=== PATIENT | female | born 1935 | race Asian ===

== ENCOUNTER 2018-01-01 07:26 | Inpatient (IN) | payer OTHER ==
[~2018-01-01] VITALS: Ht 157.5 cm; Wt 58.0 kg
[~2018-01-01 07:26] MED LIST: AMLO2.5T29 PO; METF500T4 PO; OLME5TAB6 PO; SIMV20TA6 PO
[2018-01-01 07:43] LABS: GLUCOSE,POINT OF CARE 128 MG/DL (70-110)
[2018-01-01] MEDS ORDERED: MULT-1259 PO (07:59)
[2018-01-01] MEDS ORDERED: DONE5TAB5 PO (07:59)
[2018-01-01 08:09] LABS: GLUCOSE,POINT OF CARE 130 MG/DL (70-110)
[2018-01-01] MEDS ORDERED: MECLIZINE HCL 25 MG TABLET PO ONE (08:15)
[2018-01-01] MEDS ORDERED: SODIUM CHLORIDE 0.9% 1,000 ML IV ONE (08:15)
[2018-01-01] MEDS ORDERED: ONDANSETRON HCL 4 MG/2 ML VIAL IVP ONE (08:15)
[2018-01-01 08:23] LABS: BASOPHILS % (AUTO) 0.5 % (0.0-2.0); EOSINOPHILS % (AUTO) 0.4 % (1.0-6.0); HEMATOCRIT 36.4 % (36-46); HEMOGLOBIN 12.2 g/dL (12.0-16.0); LYMPHOCYTES # (AUTO) 1.3 K/uL (1.0-4.8); LYMPHOCYTES % (AUTO) 19.3 % (22.0-44.0); MEAN CORPUSCULAR HEMOGLOBIN 31.5 pg (26.0-34.0); MEAN CORPUSCULAR HGB CONC 33.5 G/dL (31.0-37.0); MEAN CORPUSCULAR VOLUME 94 fL (80-100); MONOCYTES # (AUTO) 0.4 K/uL (0.1-1.0); MONOCYTES % (AUTO) 6.7 % (2.0-9.0); NEUTROPHILS # (AUTO) 4.8 K/uL (1.8-7.7); NEUTROPHILS % (AUTO) 73.1 % (40.0-70.0); PLATELET COUNT (AUTO) 208 K/uL (150-450); RED BLOOD CELL COUNT(AUTO) 3.88 MIL/uL (4.00-5.20); RED CELL DISTRIBUTION WIDTH 12.9 % (11.5-14.5)
[2018-01-01 08:37] LABS: ANION GAP 11 mmol/L (8-16); CALCIUM, TOTAL 8.8 mg/dL (8.8-10.5); CARBON DIOXIDE 28 mmol/L (22-29); CHLORIDE 103 mmol/L (98-107); CREATININE 0.64 mg/dL (0.60-1.30); GLOMERULAR FILTR. RATE CALC > 60 mL/min (>60); GLUCOSE,RANDOM 142 mg/dL (70-110); POTASSIUM 3.9 mmol/L (3.5-5.1); SODIUM SERUM 142 mmol/L (136-145); UREA NITROGEN, BLOOD 15 mg/dL (7-18)
[2018-01-01 08:42] LABS: ALANINE AMINOTRANSFERASE 24 U/L (12-78); ALBUMIN 3.8 g/dL (3.4-5.0); ALKALINE PHOSPHATASE 64 U/L (46-116); ASPARTATE AMINOTRANSFERASE 20 U/L (15-37); BILIRUBIN,TOTAL 0.5 mg/dL (0.1-1.0); TOTAL PROTEIN, SERUM 7.6 g/dL (6.4-8.2)
[2018-01-01] MEDS ORDERED: ONDANSETRON HCL 4 MG/2 ML VIAL IVP PRN ×2 (09:30→16:15)
[2018-01-01] MEDS ORDERED: ACETAMINOPHEN 325 MG TABLET PO PRN ×2 (09:30→16:15)
[2018-01-01 13:18] VITALS: BP 134/61
[2018-01-01 15:33] VITALS: BP 120/65
[2018-01-01] MEDS ORDERED: ZOLPIDEM TARTRATE 5 MG TABLET PO PRN (16:15)
[2018-01-01] MEDS ORDERED: IPRATROPIUM BROMIDE 0.5 MG/2.5 ML NEB SOLUTION NEB PRN (16:15)
[2018-01-01] MEDS ORDERED: MAGNESIUM HYDROXIDE SUSPENSION 30 ML UDCUP PO PRN (16:15)
[2018-01-01] MEDS ORDERED: MORPHINE SULFATE 2 MG/ML SYRINGE IVP PRN (16:15)
[2018-01-01] MEDS ORDERED: HYDROCODONE/ACETAMINOPHEN 5-325 MG TABLET PO PRN (16:15)
[2018-01-01] MEDS ORDERED: ALBUTEROL SULFATE 2.5 MG/0.5 ML NEB SOLUTION NEB PRN (16:15)
[2018-01-01] MEDS ORDERED: BISACODYL 10 MG RECTAL RECTAL SUPPOSITORY PR PRN (16:15)
[2018-01-01 17:11] LABS: CREATINE KINASE, TOTAL 102 U/L (26-192)
[2018-01-01 19:27] VITALS: BP 115/63
[2018-01-01] MEDS: SIMVASTATIN 20 MG TABLET PO SCH (20:25)
[2018-01-01] MEDS: MetFORMIN HCL 500 MG TABLET PO SCH (20:25)
[2018-01-01] MEDS: AmLODIPine BESYLATE 5 MG TABLET PO SCH (20:25)
[2018-01-01] MEDS: DOCUSATE SODIUM 100 MG CAPSULE PO SCH (20:28)
[2018-01-01 23:22] VITALS: BP 108/61
[2018-01-02] MEDS: HEPARIN SODIUM,PORCINE 5,000 UNITS/ML VIAL SQ SCH ×3 (00:17→16:13)
[2018-01-02 04:39] VITALS: BP 106/57
[2018-01-02 06:28] LABS: FREE T4 (FREE THYROXINE) 0.93 ng/dL (0.76-1.46); THYROID STIMULATING HORMONE 1.13 uIU/mL (0.36-3.74)
[2018-01-02 07:23] VITALS: BP 123/63
[2018-01-02] MEDS: AmLODIPine BESYLATE 5 MG TABLET PO SCH ×2 (08:32→20:24)
[2018-01-02] MEDS: DONEPEZIL HCL 5 MG TABLET PO SCH (08:32)
[2018-01-02] MEDS: MetFORMIN HCL 500 MG TABLET PO SCH ×2 (08:32→18:01)
[2018-01-02] MEDS: PANTOPRAZOLE SODIUM 40 MG/VIAL IVP SCH (08:32)
[2018-01-02] MEDS: DOCUSATE SODIUM 100 MG CAPSULE PO SCH ×2 (08:33→20:24)
[2018-01-02 11:52] VITALS: BP 114/64
[2018-01-02 15:21] VITALS: BP 128/66
[2018-01-02 19:41] VITALS: BP 129/69
[2018-01-02] MEDS: SIMVASTATIN 20 MG TABLET PO SCH (20:24)
[2018-01-02 23:35] VITALS: BP 114/64
[2018-01-03] VITALS (7 sets, daily range): BP systolic 90–135; BP diastolic 53–66
[2018-01-03] MEDS: HEPARIN SODIUM,PORCINE 5,000 UNITS/ML VIAL SQ SCH ×4 (01:28→23:53)
[2018-01-03 06:45] LABS: BASOPHILS % (AUTO) 0.9 % (0.0-2.0); EOSINOPHILS % (AUTO) 5.5 % (1.0-6.0); HEMATOCRIT 35.2 % (36-46); HEMOGLOBIN 11.8 g/dL (12.0-16.0); LYMPHOCYTES # (AUTO) 1.9 K/uL (1.0-4.8); LYMPHOCYTES % (AUTO) 41.9 % (22.0-44.0); MEAN CORPUSCULAR HEMOGLOBIN 31.4 pg (26.0-34.0); MEAN CORPUSCULAR HGB CONC 33.6 G/dL (31.0-37.0); MEAN CORPUSCULAR VOLUME 93 fL (80-100); MONOCYTES # (AUTO) 0.5 K/uL (0.1-1.0); MONOCYTES % (AUTO) 11.3 % (2.0-9.0); NEUTROPHILS # (AUTO) 1.8 K/uL (1.8-7.7); NEUTROPHILS % (AUTO) 40.4 % (40.0-70.0); PLATELET COUNT (AUTO) 203 K/uL (150-450); RED BLOOD CELL COUNT(AUTO) 3.77 MIL/uL (4.00-5.20); RED CELL DISTRIBUTION WIDTH 12.9 % (11.5-14.5)
[2018-01-03 07:13] LABS: ANION GAP 5 mmol/L (8-16); CALCIUM, TOTAL 8.5 mg/dL (8.8-10.5); CARBON DIOXIDE 33 mmol/L (22-29); CHLORIDE 104 mmol/L (98-107); CREATININE 0.68 mg/dL (0.60-1.30); GLOMERULAR FILTR. RATE CALC > 60 mL/min (>60); GLUCOSE,RANDOM 98 mg/dL (70-110); POTASSIUM 3.8 mmol/L (3.5-5.1); SODIUM SERUM 142 mmol/L (136-145); UREA NITROGEN, BLOOD 10 mg/dL (7-18)
[2018-01-03] MEDS: DOCUSATE SODIUM 100 MG CAPSULE PO SCH ×2 (08:29→20:40)
[2018-01-03] MEDS: DONEPEZIL HCL 5 MG TABLET PO SCH (08:29)
[2018-01-03] MEDS: AmLODIPine BESYLATE 5 MG TABLET PO SCH ×2 (08:29→21:00)
[2018-01-03] MEDS: MetFORMIN HCL 500 MG TABLET PO SCH ×2 (08:30→18:15)
[2018-01-03] MEDS: PANTOPRAZOLE SODIUM 40 MG/VIAL IVP SCH (08:30)
[2018-01-03] MEDS ORDERED: AMLO-511 PO (12:12)
[2018-01-03] MEDS ORDERED: OLME40 PO (12:12)
[2018-01-03] MEDS: MECLIZINE HCL 25 MG TABLET PO SCH ×2 (13:11→20:40)
[2018-01-03] MEDS: SIMVASTATIN 20 MG TABLET PO SCH (20:40)
[2018-01-04 04:45] VITALS: BP 122/64
[2018-01-04 06:10] LABS: BASOPHILS % (AUTO) 0.9 % (0.0-2.0); EOSINOPHILS % (AUTO) 5.5 % (1.0-6.0); HEMATOCRIT 35.3 % (36-46); HEMOGLOBIN 12.3 g/dL (12.0-16.0); LYMPHOCYTES # (AUTO) 2.1 K/uL (1.0-4.8); MEAN CORPUSCULAR HEMOGLOBIN 32.4 pg (26.0-34.0); MEAN CORPUSCULAR HGB CONC 34.8 G/dL (31.0-37.0); MEAN CORPUSCULAR VOLUME 93 fL (80-100); MONOCYTES # (AUTO) 0.5 K/uL (0.1-1.0); MONOCYTES % (AUTO) 10.2 % (2.0-9.0); NEUTROPHILS # (AUTO) 2.1 K/uL (1.8-7.7); NEUTROPHILS % (AUTO) 41.4 % (40.0-70.0); PLATELET COUNT (AUTO) 202 K/uL (150-450)
[2018-01-04 06:27] LABS: ANION GAP 6 mmol/L (8-16); CALCIUM, TOTAL 8.6 mg/dL (8.8-10.5); CARBON DIOXIDE 31 mmol/L (22-29); CHLORIDE 104 mmol/L (98-107); CREATININE 0.66 mg/dL (0.60-1.30); GLOMERULAR FILTR. RATE CALC > 60 mL/min (>60); GLUCOSE,RANDOM 97 mg/dL (70-110); POTASSIUM 3.7 mmol/L (3.5-5.1); SODIUM SERUM 141 mmol/L (136-145); THYROID STIMULATING HORMONE 1.28 uIU/mL (0.36-3.74); UREA NITROGEN, BLOOD 17 mg/dL (7-18)
[2018-01-04] MEDS: AmLODIPine BESYLATE 5 MG TABLET PO SCH (07:42)
[2018-01-04] MEDS: MECLIZINE HCL 25 MG TABLET PO SCH ×2 (07:42→21:25)
[2018-01-04] MEDS: MetFORMIN HCL 500 MG TABLET PO SCH ×2 (07:42→17:28)
[2018-01-04] MEDS: PANTOPRAZOLE SODIUM 40 MG/VIAL IVP SCH (07:44)
[2018-01-04] MEDS: DOCUSATE SODIUM 100 MG CAPSULE PO SCH ×2 (07:44→21:25)
[2018-01-04] MEDS: HEPARIN SODIUM,PORCINE 5,000 UNITS/ML VIAL SQ SCH ×2 (07:44→17:28)
[2018-01-04] MEDS: DONEPEZIL HCL 5 MG TABLET PO SCH (07:44)
[2018-01-04 07:45] VITALS: BP 115/59
[2018-01-04 11:10] VITALS: BP 116/71
[2018-01-04 15:34] VITALS: BP 115/60
[2018-01-04 19:56] VITALS: BP 106/65
[2018-01-04] MEDS: SIMVASTATIN 20 MG TABLET PO SCH (21:25)
[2018-01-05] MEDS: HEPARIN SODIUM,PORCINE 5,000 UNITS/ML VIAL SQ SCH ×3 (00:13→16:45)
[2018-01-05] MEDS: AmLODIPine BESYLATE 5 MG TABLET PO SCH ×2 (00:13→08:12)
[2018-01-05 00:16] VITALS: BP 114/66
[2018-01-05 05:47] VITALS: BP 115/70
[2018-01-05 07:43] VITALS: BP 114/61
[2018-01-05] MEDS: MetFORMIN HCL 500 MG TABLET PO SCH ×2 (08:11→18:09)
[2018-01-05] MEDS: PANTOPRAZOLE SODIUM 40 MG/VIAL IVP SCH (08:11)
[2018-01-05] MEDS: DONEPEZIL HCL 5 MG TABLET PO SCH (08:12)
[2018-01-05] MEDS: DOCUSATE SODIUM 100 MG CAPSULE PO SCH (08:12)
[2018-01-05] MEDS: MECLIZINE HCL 25 MG TABLET PO SCH (08:12)
[2018-01-05] MEDS ORDERED: GADOBUTROL 1 MMOL/ML 10 ML VIAL IVP ONE (08:17)
[2018-01-05 09:03] LABS: GLUCOMETER DEV NAME(LOC) PVLAB129; GLUCOSE,POINT OF CARE 140 MG/DL (70-110)
[2018-01-05 11:13] VITALS: BP 117/61
[2018-01-05 15:39] VITALS: BP 116/68
[2018-01-05] MEDS ORDERED: MECLIZINE HCL 25 MG TABLET PO SCH (18:00)
[2018-01-05] MEDS ORDERED: HEPA500018 SQ (20:05)
[2018-01-05] MEDS ORDERED: PANT40TA25 PO (20:06)
[2018-01-05] MEDS ORDERED: SIMV-260 PO (20:06)
[2018-01-05] MEDS ORDERED: MECL-111 PO (20:06)
[2018-01-05] MEDS ORDERED: AUD NEB (20:07)
[2018-01-05] MEDS ORDERED: ACET-2902 PO (20:07)
[2018-01-05] MEDS ORDERED: BISA10S PR (20:08)
[2018-01-05] MEDS ORDERED: HYDR-309 PO (20:09)
[2018-01-05] MEDS ORDERED: IPRNEB NEB (20:09)
[2018-01-05] MEDS ORDERED: MOM30 PO (20:10)
[2018-01-05] MEDS ORDERED: ZOLP5 PO (20:11)
[2018-01-06 05:43] LABS: GLUCOMETER DEV NAME(LOC) 5N 2R; GLUCOSE,POINT OF CARE 155 MG/DL (70-110)
== END 2018-01-05 18:26 | disposition home or self-care (01) | DRG 149 ==
LOC: EMS 07:27 → 5N 11:18
PROVIDERS: ADMIT Hospitalist; ATTEND Hospitalist
DX: R42 Dizziness and giddiness (principal); E11.9 Type 2 diabetes mellitus without complications; F03.90 Unspecified dementia, unspecified severity, without behavioral disturbance, psychotic disturbance, mood disturbance, and anxiety; E78.00 Pure hypercholesterolemia, unspecified; R26.9 Unspecified abnormalities of gait and mobility; E78.5 Hyperlipidemia, unspecified; I10 Essential (primary) hypertension; M81.0 Age-related osteoporosis without current pathological fracture; Z79.899 Other long term (current) drug therapy; Z79.84 Long term (current) use of oral hypoglycemic drugs
CPT/HCPCS: 70450; 70553; 82962; 83735; 84439; 84443; 93005; 93306; 93880; 96361; 96374; 97116; 97161; 97530; 99285; A9585; C9113; J1644; J2405; J7030

== ENCOUNTER 2018-11-28 15:28 | Emergency (ER) | payer OTHER ==
[~2018-11-28] VITALS: Ht 162.6 cm; Wt 63.6 kg
[~2018-11-28 15:28] MED LIST changes: +ACET-2902 PO; +AMLO-511 PO; -AMLO2.5T29 PO; +AUD NEB; +BISA10S PR; +DONE5TAB5 PO; +HEPA500018 SQ; +HYDR-309 PO; +IPRNEB NEB; +MECL-111 PO; +METF-444 PO; -METF500T4 PO; +MOM30 PO; +MULT-1259 PO; +OLME40TA8 PO; -OLME5TAB6 PO; +PANT40TA25 PO; +ZOLP5 PO
[2018-11-28 16:26] LABS: BASOPHILS % (AUTO) 0.7 % (0.0-2.0); EOSINOPHILS % (AUTO) 1.9 % (1.0-6.0); HEMATOCRIT 38.5 % (36-46); HEMOGLOBIN 13.1 g/dL (12.0-16.0); LYMPHOCYTES % (AUTO) 37.1 % (22.0-44.0); MEAN CORPUSCULAR HEMOGLOBIN 32.3 pg (26.0-34.0); MEAN CORPUSCULAR HGB CONC 34.1 G/dL (31.0-37.0); MEAN CORPUSCULAR VOLUME 95 fL (80-100); MONOCYTES # (AUTO) 0.4 K/uL (0.1-1.0); NEUTROPHILS # (AUTO) 2.8 K/uL (1.8-7.7); NEUTROPHILS % (AUTO) 52.3 % (40.0-70.0); PLATELET COUNT (AUTO) 218 K/uL (150-450); RED BLOOD CELL COUNT(AUTO) 4.07 MIL/uL (4.00-5.20); RED CELL DISTRIBUTION WIDTH 12.7 % (11.5-14.5)
[2018-11-28 16:35] LABS: ANION GAP 8 mmol/L (8-16); CALCIUM, TOTAL 9.1 mg/dL (8.8-10.5); CARBON DIOXIDE 30 mmol/L (22-29); CHLORIDE 101 mmol/L (98-107); CREATININE 0.97 mg/dL (0.60-1.30); GLOMERULAR FILTR. RATE CALC 55 mL/min (>60); GLUCOSE,RANDOM 148 mg/dL (70-110); POTASSIUM 4.1 mmol/L (3.5-5.1); SODIUM SERUM 139 mmol/L (136-145); UREA NITROGEN, BLOOD 14 mg/dL (7-18)
[2018-11-28 16:41] LABS: ALANINE AMINOTRANSFERASE 23 U/L (12-78); ALBUMIN 4.1 g/dL (3.4-5.0); ALKALINE PHOSPHATASE 69 U/L (46-116); ASPARTATE AMINOTRANSFERASE 22 U/L (15-37); BILIRUBIN,TOTAL 0.4 mg/dL (0.1-1.0); LIPASE 199 U/L (73-393); TOTAL PROTEIN, SERUM 7.7 g/dL (6.4-8.2)
[2018-11-28 18:21] LABS: APPEARANCE,URINE CLEAR (CLEAR); BILIRUBIN,URINE NEGATIVE (NEGATIVE); GLUCOSE, URINE (UA) NEGATIVE (NEGATIVE); KETONES,URINE NEGATIVE (NEGATIVE); LEUKOCYTE ESTERASE ,URINE TRACE (NEGATIVE); NITRATE,URINE POSITIVE (NEGATIVE); OCCULT BLOOD,URINE NEGATIVE (NEGATIVE); PROTEIN,URINE NEGATIVE (NEGATIVE); UROBILINOGEN,URINE 0.2 mg/dL (<=1.0)
[2018-11-28 18:23] LABS: AMPHET/METH SCREEN,URINE NEGATIVE (NEGATIVE); BARBITURATE SCREEN, URINE NEGATIVE (NEGATIVE); BENZODIAZEPINES SCREEN,URINE NEGATIVE (NEGATIVE); CANNABINOID SCREEN,URINE NEGATIVE (NEGATIVE); COCAINE SCREEN,URINE NEGATIVE (NEGATIVE); METHADONE SCREEN, URINE NEGATIVE (NEGATIVE); OPIATE SCREEN,URINE NEGATIVE (NEGATIVE)
[2018-11-28 18:24] LABS: PHENCYCLIDINE SCREEN,URINE NEGATIVE (NEGATIVE)
[2018-11-28 19:11] LABS: BACTERIA,URINE Many /HPF (None Seen); RBC,URINE 0-2 /HPF (0-2); SQUAMOUS EPITHELIAL CELL,UR Rare /LPF (None Seen)
[2018-11-28] MEDS ORDERED: CIPROFLOXACIN HCL 250 MG TABLET PO ONE (19:15)
[2018-11-28 20:17] VITALS: BP 120/58
== END 2018-11-28 20:53 | disposition left against medical advice (07) ==
LOC: EMS 15:29
DX: R55 Syncope and collapse (principal); N39.0 Urinary tract infection, site not specified; R42 Dizziness and giddiness; E11.9 Type 2 diabetes mellitus without complications; E78.00 Pure hypercholesterolemia, unspecified; I10 Essential (primary) hypertension; Z79.84 Long term (current) use of oral hypoglycemic drugs; Z79.899 Other long term (current) drug therapy
CPT/HCPCS: 36415; 70450; 71045; 80053; 80307; 81001; 82948; 82962; 83690; 84484; 85025; 87086; 87186; 93005; 99285; G0480